=== PATIENT | male | born 1990 | race Two or more races ===

== ENCOUNTER 2018-01-19 11:19 | Emergency (ER) | payer OTHER ==
[~2018-01-19] VITALS: Ht 182.9 cm; Wt 90.0 kg
[2018-01-19 11:44] VITALS: BP 170/98
== END 2018-01-19 13:33 | disposition home or self-care (01) ==
LOC: ED 12:46
DX: S63.285A Dislocation of proximal interphalangeal joint of left ring finger, initial encounter (principal); F17.200 Nicotine dependence, unspecified, uncomplicated; W01.0XXA Fall on same level from slipping, tripping and stumbling without subsequent striking against object, initial encounter; Y93.89 Activity, other specified; Y92.89 Other specified places as the place of occurrence of the external cause; Y99.8 Other external cause status
CPT/HCPCS: 99284